=== PATIENT | male | born 1980 | race Hispanic/Latino ===

== ENCOUNTER 2023-04-26 08:19 | Emergency (ER) | payer SELFPAY ==
[~2023-04-26] VITALS: Ht 167.6 cm; Wt 66.2 kg
[2023-04-26] MEDS ORDERED: Diph, Acellular Pertussis, Tet 0.5 ML/VIAL (Tdap) SDV IM ONE (09:20)
[2023-04-26] MEDS ORDERED: oxyCODONE 5MG/ ACETAMINOPHEN 325MG TAB PO ONE (09:20)
[2023-04-26] MEDS ORDERED: IBUPROFEN 600 MG/TAB PO ONE (09:20)
[2023-04-26] MEDS ORDERED: TRAMADOL HYDROC50 M1 PO (10:49)
[2023-04-26 11:08] VITALS: BP 132/79
== END 2023-04-26 11:10 | disposition home or self-care (01) | DRG 563 ==
LOC: ED 08:19
DX: S62.636A Displaced fracture of distal phalanx of right little finger, initial encounter for closed fracture (principal); W23.0XXA Caught, crushed, jammed, or pinched between moving objects, initial encounter